=== PATIENT | female | born 1990 | race Caucasian/White ===

== ENCOUNTER → 2017-05-14 19:46 | Outpatient (CLI) | payer MEDICAID, SELFPAY ==
[2017-05-14 21:02] LABS: BUN 14 mg/dL (7-18); Creatinine, Serum 0.78 mg/dL (0.55-1.02); EST Glomerular Filtration Rate 95 mL/min (>60); Est Glom Filt Rate - Afr Amer 114 mL/min (>60); Rheumatoid Factor < 10.0 IU/mL (<15); Uric Acid 4.2 mg/dL (2.6-6.0)
[2017-05-14 21:09] LABS: Erythrocyte Sedimentation Rate 3 mm/hr (0-20)
[2017-05-16 12:38] LABS: ANTINUCLEAR ANTIBODIES DIRECT Negative (Negative)
[2017-05-18 16:08] LABS: Thyroid Peroxidase AB 16 IU/mL (0-34)
[2017-05-18 16:16] LABS: Anti-Nuclear Antibody Test Negative (.)
== END ==
PROVIDERS: Family Provider Family Medicine; PCP Family Medicine
DX: G40.119 Localization-related (focal) (partial) symptomatic epilepsy and epileptic syndromes with simple partial seizures, intractable, without status epilepticus (principal); L50.9 Urticaria, unspecified
CPT/HCPCS: 82306; 82542; 82565; 83520; 84520; 84550; 85652; 86038; 86376; 86431

== ENCOUNTER 2017-06-07 06:15 | Day surgery (SDC) | payer OTHER, MEDICAID, SELFPAY ==
[2017-06-07] VITALS (8 sets, daily range): BP systolic 101–119; BP diastolic 59–78; PULSE 62–86; RESP 16–20; TEMP 36.3–37.2; O2SAT 92–98; BMI 26.5
[2017-06-07] MEDS: Clindamycin 900 MG/50 ML BAG 75 MG IV (07:30)
[2017-06-07] MEDS: Bupivacaine Mpf 0.5% 30 ML VIAL (07:45)
--- NOTE | 2017-06-07 09:02 | OP.PCM_ITS ---
Report of Operation Date of Procedure: 06/07/17 Pre-Operative Diagnosis: Impacted third molars 1 16 17 32 Post-Operative Diagnosis: Same Surgery/Procedure Performed:: Surgical removal third molars 1 16 17 32 Description of Surgical Findings:: It was identified in the preop holding area. Mother was accompanying the patient. At this time we discussed the potential risk and complications of the procedure and these included but were not limited to pain, infection, injury to neurovascular structures, possible infection. The mother agreed and consent was obtained. At this time the patient was taken back to the operating room where she was placed into the supine position on the operating room table. At this time the patient was then prepped for general anesthesia. Laryngeal mask airway was placed. At this time the patient was then prepped in the usual fashion for standard oral maxillofacial procedures. Throat Pack was placed. We injected lidocaine 2% 1-100,000 epinephrine and Sensorcaine was then placed into the buccal vestibule adjacent to teeth 1 and 16 and also by inferior alveolar nerve blocks. At this time we started at #17 area and a full- thickness mucoperiosteal flap was elevated bone was removed and the tooth was dissected free of the alveolar bone. The site was irrigated and then sutured with 3-0 chromic gut suture in a interrupted fashion. At this time attention was then directed to the maxillary tooth #16 where a full-thickness mucoperiosteal flap was elevated bone removed and then the tooth was removed. Patient was irrigated with saline solution and suturing with 3-0 chromic gut suture in interrupted fashion was then performed. Lidocaine and sensorcaine was then place by local infiltration and mandibular blocks for the patients right hand side specifically for teeth 1 and 32. At this time our attention was directed to #1 area full-thickness mucoperiosteal flap was elevated and bone removed and the tooth dissected free of the alveolar bone. It was irrigated and sutured with 3-0 chromic gut suture. Finally our attention was then directed to #32 area where again a full-thickness mucoperiosteal flap elevated bone removed and then the tooth was dissected free of the alveolar bone. Site was irrigated and sutured with 3-0 chromic gut. She tolerated the procedure and anesthesia well and she was awakened and the laryngeal mask airway was removed and patient was taken to recovery room in stable condition breathing spontaneously. All needle counts and spnge counts were correct estimated blood loss was minimal. This is Dr. Hernandez ending operative dictation for patient Silvina Fernandes thank you.
[2017-06-07] MEDS: HYDROCODONE/APAP 7.5-325/15ML 15 ML UDC PO (12:21)
== END 2017-06-07 12:31 | disposition home or self-care (01) ==
LOC: SDC 06:19 → AC 06:19
PROVIDERS: Family Provider Family Medicine; PCP Family Medicine; Visit Provider Dentist Oral and Maxillofacial Surgery
PROC: (CPT 41899; principal; 2017-06-07 07:15)
DX: K01.1 Impacted teeth (principal); F41.9 Anxiety disorder, unspecified; F84.0 Autistic disorder; G40.909 Epilepsy, unspecified, not intractable, without status epilepticus
CPT/HCPCS: 41899; J3010; J7120; J2405

== ENCOUNTER → 2017-08-05 12:33 | Outpatient (CLI) | payer OTHER, MEDICAID, SELFPAY ==
[2017-08-05 13:07] LABS: Vitamin B12 824 pg/mL (211-911)
== END ==
PROVIDERS: Family Provider Family Medicine; PCP Family Medicine; Visit Provider Family Medicine
DX: N92.6 Irregular menstruation, unspecified (principal)
CPT/HCPCS: 82607; 82746

== ENCOUNTER → 2018-04-11 10:59 | Outpatient (CLI) | payer OTHER, SELFPAY ==
[2018-04-11 11:40] LABS: Insulin 5.6 mU/L (2.6-37.6)
== END ==
PROVIDERS: PCP Family Medicine; Visit Provider Obstetrics & Gynecology
DX: R63.5 Abnormal weight gain (principal)
CPT/HCPCS: 83525

== ENCOUNTER → 2018-09-05 12:20 | Outpatient (CLI) | payer OTHER, MEDICAID, SELFPAY ==
[2018-09-09 13:39] LABS: Lamotrigine (Lamictal) Level 8.5 ug/mL (2.0-20.0)
== END ==
PROVIDERS: Family Provider Family Medicine; PCP Family Medicine
DX: G40.309 Generalized idiopathic epilepsy and epileptic syndromes, not intractable, without status epilepticus (principal)
CPT/HCPCS: 82542

== ENCOUNTER → 2019-01-27 10:35 | Outpatient (CLI) | payer OTHER, MEDICAID, SELFPAY ==
[2017-06-07 06:38] VITALS: BMI 26.5
--- NOTE | 2019-01-27 10:41 | RAD_ITS ---
HISTORY: scoliosis TECHNIQUE: AP and lateral views of the thoracolumbar spine Number of images including paperwork: 6 COMPARISON: 12/13/2014 FINDINGS: VERTEBRAE: No acute fracture. VERTEBRAL ALIGNMENT: No traumatic subluxation. S-shaped scoliosis of the thoracolumbar spine with thoracic curvature measuring 45 and lumbar curvature measuring 65, similar to previous. Thoracolumbar kyphosis. DISKS AND JOINTS: No significant degenerative changes. SOFT TISSUES: Unremarkable paraspinous soft tissues. IUD. RAD/Scoliosis 1 view IMPRESSION: No gross change in S-shaped thoracolumbar scoliosis. at 0028 Reported and signed by: Rosalie Tanner MD Electronically Signed: Rosalie Tnaner MD at 0:28 EDT Tel , Service support ,
== END ==
PROVIDERS: Family Provider Family Medicine; PCP Family Medicine; Referring Provider Family Medicine; Visit Provider Family Medicine
DX: M41.9 Scoliosis, unspecified (principal)
CPT/HCPCS: 72081

== ENCOUNTER → 2020-12-16 15:45 | Outpatient (CLI) | payer OTHER, MEDICAID, SELFPAY ==
--- NOTE | 2020-12-16 15:48 | RAD_ITS ---
STUDY: X-RAY - LEFT ANKLE REASON FOR EXAM: Female, 30 years old. bruising, pain, rolling injury TECHNIQUE: 3 view(s) of the ankle. COMPARISON: None. FINDINGS: Normal visualized distal tibia and fibula. Normal medial and lateral malleoli. Normal tibiotalar articulation and ankle mortise. Normal visualized talus and calcaneus. No visualized acute fracture fragment. The visualized subtalar, talonavicular, calcaneocuboid and tarsal articulations are normal. There is no demonstrated fracture. The soft tissue structures are unremarkable. RAD/Ankle min 3 Views IMPRESSION: Normal x-ray examination of the ankle. Electronically Signed: Freddy Harris MD at 17:26 EDT , Service support ,
--- NOTE | 2020-12-16 16:50 | RAD_ITS ---
STUDY: X-RAY - LEFT FOOT CLINICAL: Female, 30 years old. FOOT SPRAIN TECHNIQUE: 3 view(s) of the foot. COMPARISON: None. FINDINGS: An acute oblique fracture is present through the mid to distal shaft of the fifth metatarsal bone with medial displacement of the distal fracture fragment of 2.8 mm. Mild adjacent soft tissue swelling is present. Normal talus, calcaneus, and tarsal bones. Normal visualized subtalar, talonavicular, calcaneocuboid, tarsal and tarsometatarsal articulations. Normal remaining metatarsi. Normal metatarsophalangeal joint of the great toe. Normal tibial and fibular sesamoid bones. Normal interphalangeal joint of the great toe. Normal phalanges of the great toe. Normal second through fifth metatarsophalangeal joints. Normal interphalangeal joints and phalanges of the lesser toes. RAD/Foot min 3 Views IMPRESSION: 1. An acute oblique fracture is present through the mid to distal shaft of the fifth metatarsal bone with medial displacement of the distal fracture fragment of 2.8 mm. Electronically Signed: Freddy Harris MD at 17:03 EDT , Service support ,
== END ==
PROVIDERS: PCP Family Medicine; Referring Provider Family Medicine; Visit Provider Family Medicine
DX: S93.602A Unspecified sprain of left foot, initial encounter (principal); S93.402A Sprain of unspecified ligament of left ankle, initial encounter
CPT/HCPCS: 73610; 73630

== ENCOUNTER 2021-03-20 12:39 | Outpatient (RCR) | payer OTHER, MEDICAID, SELFPAY ==
--- NOTE | 2021-03-20 13:59 | HP.PTEVAL_ITS ---
Patient's Visit Information SILVINA SMITH is a 31 year old F referred to Physical Therapy by Dr. Christine Alegre DPM with a diagnosis of Left ORIF 5th met. Date of Evaluation: 03/20/21 Physical Therapist: Silvina Sunshine DPT - Visit Plan Frequency: 1x/Week Duration: 4 Weeks Plan: 03/20/21: Currently partial WBAT LLE in CAM-okay to progress to full weight bearing in CAM then progress to athletic shoe. HEP Given: Education of boot weaning, seated to standing HR/TR, weight shifts, standing hip flexion/abd/extn, hamstring curls and sit to stands - Subjective 12/29/[address] Alegre. Hiking in [place]- hiked with her f amily- did great- walking stick and on the last day she was trying to go down a large step and landed on her left foot. Got her back out- thought it was a sprain- went to the doctor a few days later- did an x-ray but was not told results until Saturday. So it was about a week that she walked on it. So she saw MD who needed to set it. So she didn't have the surgery for about 3 weeks after the break. She had a splint and was non-weight bearing- 03/09/21 she was given permission to partial weight bear. She is healing fine and her goals are to feel comfortable with the walker and learn to do steps. They have stairs and has not been upstairs since the accident- hand rail on a single rail. Sometimes she has walked without the walker- she has no pain. She has no pain in her foot. She wears her boot when she is walking but does not sleep in her boot. Sleep: disturbed- sometimes wakes her up. Lives with family- prior to accident she did not drive and does require assistance with ADL's- but is able to dress herself in the morning- she has help washing her hair- there is always someone home with her- Autism. She does not drive. - Objective Posture: FH, RS- scolosis- can correct with verbal cues to an extent but unable to maintain. Gait: antalgic- CAM walker on the left- FWW- decreased stance on the left with poor heel/toe pattern- can ambulate without AD- slow bernardo and step length. Stairs: asc/desc non recip with 1 HR- mother reports this is a normal pattern for her. SLS: weight shift but does not SLS. HR/TR: seated able without discomfort. ROM: WFL in all planes. Strength: WFL in all planes of the LE- core: fair. Flex: HS: moderate Gastroc: mild. Observation: no edema. Palpation: tender along 5th met - Balance/Special Test Scores Lower Extremity Functional Score: 36 - Goals Goal 1:: Patient will be I with HEP and progression Goal Time Frame: 4-6 Weeks Goal 2:: Patient will ambulate >300 feet with a normalized gait pattern- no CAM boot and no AD Goal Time Frame: 4-6 Weeks - Rehabilitation Potential Physical Therapy Diagnosis: Patient presents with hypomobility- she has decreased proprioception and functional mobility s/p ORIF of the 5th met - Anticipated Interventions Patient/Client Instruction: Educate patient on: Benefits of Fitness Program Therapeutic Exercise to Include: Strength training, Endurance training, Balance training, Agility training, Body mechanics, Postural training, Flexibilty training, Gait and locomotor training, Neuromotor development, Dynamic Lumbar Stabilization, Scapular Strength/Stabilization For the Purpose of:: To improve muscle performance and motor function TENS: Yes Cryotherapy (ice pack, ice massage): Yes Thermo therapy (hot pack): Yes Ultrasound (thermal/non thermal): No Thank you for the opportunity to evaluate your patient. For Medicare and Medicare HMO plans, please review the plan of care and approve it. It will need to be FAXED BACK to us at [phone] for Medicare purposes. For Medicare only, by signing this I certify the plan of care. Please let me know if there are questions or concerns regarding this plan of care. Physician Signature: Date:
--- NOTE | 2021-04-19 15:10 | HP.PT.NRP ---
SILVINA SMITH was seen in my office for initial evaluation on 03/20/21. The following Plan of Care was established for this patient: Initial Frequency: 1x/Week Initial Duration: 4 Weeks Patient/Client Instruction: Educate patient on: Benefits of Fitness Program Therapeutic Exercise to Include: Strength training, Endurance training, Balance training, Agility training, Body mechanics, Postural training, Flexibilty training, Gait and locomotor training, Neuromotor development, Dynamic Lumbar Stabilization, Scapular Strength/Stabilization For the Purpose of:: To improve muscle performance and motor function TENS: Yes Cryotherapy (ice pack, ice massage): Yes Thermo therapy (hot pack): Yes Ultrasound (thermal/non thermal): No This patient was last seen in our office . Pertinent comments regarding their Physical therapy will appear below: Patient has attended PT in over 30 days- appropriate to be d/c from PT- follow up with MD for further evaluation. At this point I will be discontinuing this patient from physical therapy. I would be happy to see this patient again in the future if found appropriate by the physician. Thank you! Silvina Sunshine DPT Balance/Gait/Functional tests - Balance/Special Test Scores Lower Extremity Functional Score: 36
== END 2021-03-20 19:00 | disposition home or self-care (01) ==
LOC: PT 12:39
PROVIDERS: PCP Family Medicine; Referring Provider Podiatrist; Visit Provider Podiatrist
DX: Z00.00 Encounter for general adult medical examination without abnormal findings (principal)
CPT/HCPCS: 97110; 97162

== ENCOUNTER 2021-08-17 07:33 | Day surgery (SDC) | payer OTHER, MEDICAID, SELFPAY ==
--- NOTE | 2021-08-17 05:48 | PCM.HP.BLA ---
History and Physical Date of Admission: 08/17/21 Surgical History and Physical Date: 08/17/2021 Name: SILVINA SMITH Age: 31 Date of : 1990 Silvina Smith, a 31 year old female 0 0 0 0 0, presents for EUA, PAP smear, Liletta IUD insertion, STI testing on August 17, 2021. -- hx seizure d/o and autism with Mirena IUD in situ for hx heavy and painful menses placed in 2016. She reports mild cramping and has brown tinged discharge recently. She is not sexually active. No prior PAPs. Requires PAP smear, IUD exchange. m MEDICATIONS HISTORY: Current medications prescribed by our practice are: 1. Mirena 20 mcg/24 hours (7 yrs) 52 mg intrauterine device, As Directed Patient is also takin. fluoxetine 20 mg/5 mL oral solution, 1 PO BID 2. Lamictal 150 mg tablet, As Directed 1.5 tabs po 2 times a day 3. 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 Review of Systems: GENERAL - Denies fever, or chills SKIN - Denies skin changes EYES - Denies visual changes EARS - Denies difficulty hearing NOSE - Denies nasal congestion or bleeding MOUTH - Denies sore throat or difficulty swallowing NECK - Denies pain or swelling RESPIRATORY - Denies shortness of breath or wheezing CARDIOVASCULAR - Denies palpitations or chest pain GASTROINTESTINAL - Denies nausea, vomiting, diarrhea, constipation GENITOURINARY - cramping MUSCULOSKELETAL - Denies joint or muscle pain NEUROLOGICAL - Denies localized numbness or weakness PSYCHIATRIC - Denies depression or anxiety ENDOCRINE - Denies heat or cold intolerance, weight loss or gain HEMATO-IMMUNOLOGIC - Denies excesive bleeding with cuts SOCIAL HISTORY: Alcohol Use - denies drinking Smoking - denies smoking Diet - no special diet Lifestyle - moderate stress lifestyle and single Exercise - none Seat Belt Use - always Employer - [employer] Illicit Drug Use - denies use of street drugs Sexual Activity - sexually inactive Residence - Lives with parents Hours Worked - 30hrs/wk Control - Mirena FAMILY HISTORY: MENSTRUAL HISTORY: LMP Known?- ApproximateAmount/Duration - irregular, Regularity - Irregular, LMP - 06/20/15, Age Onset Menarche - 18 PAST PREGNANCIES: Total Pregnancies - 0; Full Term Pregnancies - 0; Premature - 0; Abortions, Induced - 0; Abortions, Spontaneous - 0; Ectopics - 0; Multiple Births - 0; Living Children - 0 SURGICAL HISTORY: 1. [place] Teeth Removal ; - 2. 06/09/2015 Mirena IUD placement in surgery ; Jess Platt MD - PHYSICAL EXAM BP- 90/60 Sitting, Right arm, regular cuff Weight- 141.42066 lbs Height- 61.75 inch BMI:[id number] CONSTITUTIONAL - NAD, well nourished, and well developed SKIN - No rash, lesions, or ulcers HEENT - normocephalic, atraumatic, sclerae anicteric LUNGS - normal respiratory rate and rhythm NEUROLOGICAL - normal gait, normal balance, normal motor PSYCHIATRIC - A and O to time, place, person, mood and affect ASSESSMENT/PLAN: 1. Encounter For Routine Checking Of Intrauterine Contraceptive Device, Excessive And Frequent Menstruation With Regular Cycle and Primary Dysmenorrhea Dysmenorrhea, AUB Recommend PAP screening - reviewed indications US confirms IUD in situ, appropriately placed Recommend EUA - IUD exchange, infection and PAP screening. Pt and mother desire to avoid office exam Pt and mother agreeable, will schedule
[2021-08-17 08:27] VITALS: BP 105/75; PULSE 63; RESP 16; TEMP 36.3; O2SAT 100; BMI 26.0
[2021-08-17] MEDS: Lactated Ringers 1,000 ML 15 ML IV (08:34)
[2021-08-17 08:46] LABS: Internal QC Validated? YES +Cl - CLEAR BKGD; Pregnancy, Serum, hCG Quali. NEGATIVE Negative
[2021-08-17] MEDS: Levonorgestrel IUD (Liletta) 1 EACH INTRA-UTER (09:38)
--- NOTE | 2021-08-17 09:46 | PCM.OPRPT ---
Problems Associated Problem List Diagnoses (1) Encounter for removal and reinsertion of intrauterine contraceptive device (IUD): (2) Cervical cancer screening: (3) Encounter for screening for infections with a predominantly sexual mode of transmission: Report of Operation Date of Procedure: 08/17/21 Pre-Operative Diagnosis: 1. Menorrhagia 2. Dysmenorrhea 3. Levonorgestrol IUD in situ Post-Operative Diagnosis: 1. Menorrhagia 2. Dysmenorrhea 3. Levonorgestrol IUD in situ Surgery/Procedure Performed:: 1. Examination under anesthesia 2. PAP smear 3. Levonorgestrol IUD exchange 4. STD screening Description of Surgical Findings:: normal uterus and cervix, uterus sounded to 8cm Surgeon: Jess Groves Type of Anesthesia: MAC Anesthesiologist: Jose Banerjee Specimen's removed: 1. PAP smear Estimated Blood Loss (mL): 2 Fluids Replaced: 100 ml Description of Procedure: Indications: 31-year-old nulligravida with a history of dysmenorrhea and menorrhagia with history of autism presents for levonorgestrel IUD exchange. She had IUD initially placed in 2016 with resolution of her symptoms. She experienced cramping and frequent irregular light menstrual bleeding over the last several months. Procedural risks, benefits, indications and alternatives were reviewed with her and her mother. As she was also due for cervical cancer screening she is scheduled for IUD exchange with Pap smear, gonorrhea chlamydia testing. Procedure: The patient was brought to the operating room and sinus performed. She is placed in the dorsal supine position and induced under MAC. She was repositioned into dorsal lithotomy. An examination under anesthesia was performed. A speculum was placed vaginally. Pap smear was obtained as well as gonorrhea and chlamydia swabs. IUD strings were grasped with easy removal of prior Mirena IUD. The uterus was sounded to 8 cm. A single-tooth tenaculum was placed at the anterior cervical lip and a Liletta IUD was introduced via the applicator. The strings were cut to 1 and half centimeters from external os. The tenaculum was removed from the cervix with hemostasis obtained at the site following compression. The speculum was removed from the vagina. The patient was repositioned into dorsal supine, awakened and transferred to the recovery room. Sponge counts were correct x2. Complications None Admit VTE Documentation VTE Present on Admission: No VTE Mechan Device Prophylaxis: SCD's VTE Pharm Prophylaxis ordered?: No
[2021-08-17 09:53] VITALS: BP 104/65; BP 105/75; PULSE 64; RESP 16; TEMP 36.7; O2SAT 94
[2021-08-17 09:55] VITALS: BP 105/75; BP 96/63; PULSE 61; RESP 16; O2SAT 95
--- NOTE | 2021-08-17 10:01 | PCM.DC ---
Discharge Instructions Diet Discharge Diet: No restrictions Activity May resume sexual activity in: 4 weeks Dressing / Incision Call your doctor if you observe: Fever of 101 or Higher, Using more than 1 pad per hour, Shortness of breath, Chest pain, Calf discomfort and Uncontrolled pain Follow Up Care Please Follow Up With: Jess Platt MD When: 4 weeks for ultrasound Test Results: Test results from this visit will be discussed in further detail at your follow-up appointment, if applicable. Discharge Plan Admission Primary Reason for Your Visit: PAP smear and IUD placement Attending Provider: Jess Groves Primary Care Provider: Yaz Mathis Instructions Patient Instructions: IUD Additional Instructions / Restrictions: Take home pain medication as needed for cramping. Discharge Orders/Prescriptions Prescriptions: Continued fluoxetine 20 MG/5 ML solution 20 mg PO BID RF: 0 lorazepam 0.5 MG tablet 1 mg PO PRN PRN (Reason: Anxiety) RF: 0 clobazam [Onfi] 10 MG tablet 15 mg PO BID RF: 0 polyethylene glycol 3350 17 GM powder in packet 17 g PO PRN PRN (Reason: STOOL SOFTNER) RF: 0 lamotrigine 150 MG tablet 225 mg PO BID RF: 0 cetirizine [Children's Zyrtec Allergy] 1 MG/ML solution 2 ml PO BID PRN (Reason: ALLERGIES) RF: 0 Referrals / Follow Up: Yaz Mathis MD [Primary Care Provider] - Disposition Disposition (needs filled in before D/C Order can be placed): Home, Self Care
[2021-08-17 10:05] VITALS: BP 102/67; BP 105/75; PULSE 57; RESP 16; O2SAT 96
[2021-08-17 10:09] VITALS: BP 101/64; BP 105/75; PULSE 58; RESP 16; TEMP 36.6; O2SAT 96
[2021-08-17 10:41] VITALS: BP 104/62; BP 105/75; PULSE 62; RESP 16; O2SAT 98
[2021-08-21 18:07] LABS: Chlamydia By Nucleic Acid AMP Negative (Negative)
[2021-08-21 19:00] LABS: Gonococcus By Nucleic Acid AMP Negative (Negative)
[2021-08-23 10:25] LABS: HPV APTIMA, High Risk Negative (Negative)
== END 2021-08-17 10:51 | disposition home or self-care (01) ==
LOC: SDC 07:38 → AC 07:40
PROVIDERS: Anesthesiology; PCP Family Medicine; Visit Provider Obstetrics & Gynecology
PROC: (CPT 58120; principal; 2021-08-17 08:40)
DX: Z30.430 Encounter for insertion of intrauterine contraceptive device (principal); G40.909 Epilepsy, unspecified, not intractable, without status epilepticus; N93.9 Abnormal uterine and vaginal bleeding, unspecified; F84.0 Autistic disorder; N92.6 Irregular menstruation, unspecified; N92.0 Excessive and frequent menstruation with regular cycle; N94.6 Dysmenorrhea, unspecified; F41.9 Anxiety disorder, unspecified
CPT/HCPCS: 58300; 58301; 00940; 84703; 87491; 87591; 87624; 88175; J7120; G0145; J2405

== ENCOUNTER → 2022-05-03 | Outpatient (CLI) | payer OTHER, MEDICAID, SELFPAY ==
--- NOTE | 2022-05-03 13:55 | BI_ITS ---
MAMMOGRAPHY - BILATERAL SCREENING REASON FOR EXAM: Female, 32 years old. Routine annual screening examination. PERTINENT HISTORY: Mother with breast cancer. TECHNIQUE: Digital bilateral breast neva (3D mammographic acquisition) in the CC and MLO projections. 2-D mediolateral oblique (MLO) and craniocaudad (CC) views of both breasts were obtained. CAD: Full Field Digital Mammography with Computer Added Detection was performed. COMPARISON: None. Baseline examination. FINDINGS: Breast Composition: The breasts are extremely dense, which lowers the sensitivity of mammography. There are no dominant masses or suspicious calcifications. No other significant abnormalities are identified. BI/SCRN MAMM (CAD)W/NEVA BILAT IMPRESSION: Negative screening mammogram. Yearly followup mammogram recommended. (A) ASSESSMENT CATEGORY: BIRADS Category 1: Negative. A letter regarding these results will be sent to the patient by the facility within 30 days. Approximately 10% of breast cancers are not detected by mammography. A normal mammogram should not delay biopsy of a clinically suspicious abnormality. [id number] Electronically Signed: Kedar Rae MD at 15:14 EST ,
== END | disposition home or self-care (01) ==
LOC: OPBI 13:51
PROVIDERS: PCP Family Medicine; Referring Provider Family Medicine; Visit Provider Family Medicine
DX: Z00.00 Encounter for general adult medical examination without abnormal findings (principal); Z80.3 Family history of malignant neoplasm of breast; Z12.31 Encounter for screening mammogram for malignant neoplasm of breast
CPT/HCPCS: 77063; 77067

== ENCOUNTER → 2023-07-16 | Outpatient (CLI) | payer OTHER, MEDICAID, SELFPAY ==
--- NOTE | 2023-07-16 14:54 | BI_ITS ---
MAMMOGRAPHY - BILATERAL SCREENING REASON FOR EXAM: Female, 33 years old. Routine annual screening examination. PERTINENT HISTORY: Mother with breast cancer. TECHNIQUE: Digital bilateral breast neva (3D mammographic acquisition) in the CC and MLO projections. 2-D mediolateral oblique (MLO) and craniocaudad (CC) views of both breasts were obtained. CAD: Full Field Digital Mammography with Computer Added Detection was performed. COMPARISON: Comparison is made with prior study of May 03, 2022. FINDINGS: Breast Composition: The breasts are extremely dense, which lowers the sensitivity of mammography. There are no dominant masses or suspicious calcifications. No other significant abnormalities are identified. There has been no significant change since the prior study. BI/SCRN MAMM (CAD)W/NEVA BILAT IMPRESSION: Stable bilateral screening mammogram. Yearly follow-up mammogram recommended. (A) ASSESSMENT CATEGORY: BIRADS Category 1: Negative. A letter regarding these results will be sent to the patient by the facility within 30 days. Approximately 10% of breast cancers are not detected by mammography. A normal mammogram should not delay biopsy of a clinically suspicious abnormality. [id number] Electronically Signed: Kedar Rae MD at 8:45 EDT ,
== END | disposition home or self-care (01) ==
LOC: OPBI 14:52
PROVIDERS: PCP Family Medicine; Referring Provider Family Medicine; Visit Provider Family Medicine
DX: Z12.31 Encounter for screening mammogram for malignant neoplasm of breast (principal); Z80.3 Family history of malignant neoplasm of breast
CPT/HCPCS: 77063; 77067